=== PATIENT | female | born 2000 | race Caucasian/White ===

== ENCOUNTER 2024-08-11 18:58 | Emergency (ER) | payer BC, SELFPAY ==
[2024-08-11 19:07] VITALS: BP 135/82; PULSE 76; RESP 20; TEMP 36.4; O2SAT 99
[2024-08-11 19:20] LABS: Bilirubin Negative (Negative); Blood Moderate (Negative); Clarity Sl Cloudy (Clear); Glucose Negative (Negative); Ketones Negative (Negative); Leukocyte Esterase Negative (Negative); Nitrite Positive (Negative); Specific Gravity >= 1.030 (1.005-1.025); Urobilinogen 0.2 mg/dL (Up to 0.2); pH 5.5 (5-8)
--- NOTE | 2024-08-11 19:23 | ED.GENADUL_ITS ---
Discharge Plan Disposition Patient Disposition: Home Condition: Stable Discharge Details Clinical Impression: Vaginal bleeding, Flank pain Primary Care Provider: Unknown,Unknown ED Provider: Jeannette Rodriguez Home Meds and New Rx's Prescriptions: New ibuprofen 800 mg tablet 800 mg PO TID PRNQty: 15 0RF cephalexin 500 mg capsule 500 mg PO BID Qty: 10 0RF No Action cyclobenzaprine 10 mg tablet 10 mg PO TID Rx Instructions: for 5 days naproxen 500 mg tablet 500 mg PO BID Rx Instructions: for 10 days Discharge Instructions Instructions: Heavy Periods ED, Flank Pain ED Additional Instructions: Please follow-up with your primary care provider. In the meantime if you do get worse or develop any new or concerning symptoms please return to the emergency department. HPI General Date/Time Provider Initiated Documentation: 08/11/24 19:01 . HPI Narrative: The patient is a 23-year-old female without any significant past medical history who comes the emergency department for heavy vaginal bleeding, right-sided flank pain. The patient reports that she normally would have a period that lasted only 3 days but since last week she has been bleeding and it has not stopped. She reports that she was expecting her period to stop by Monday but it did not. Reports that she did miss her Depo shot this Monday. Reports that she has also noticed pain along the right flank. Patient is unsure if it is related. Denies any nausea or vomiting with this otherwise. Denies fevers or chills. Denies any trauma or injury to the region. Denies concern. Denies lightheadedness or dizziness. Reports in a day she goes through may be 5-7 pads. Related Data Home Medications ?Medication ?Instructions ?Recorded ?Confirmed cephalexin 500 mg capsule 500 mg PO BID #10 caps 08/11/24 cyclobenzaprine 10 mg tablet 10 mg PO TID 08/11/24 08/11/24 ibuprofen 800 mg tablet 800 mg PO TID PRN #15 tabs 08/11/24 naproxen 500 mg tablet 500 mg PO BID 08/11/24 08/11/24 Previous Rx's ?Medication ?Instructions ?Recorded cephalexin 500 mg capsule 500 mg PO BID #10 caps 08/11/24 ibuprofen 800 mg tablet 800 mg PO TID PRN #15 tabs 08/11/24 Allergies Allergy/AdvReac Type Severity Reaction Status Date / Time No Known Allergies Allergy Unverified 08/11/24 19:03 General Stated Complaint: [employer]: 3 Review of Systems Narrative: Review of systems are negative except as mentioned. Exam Narrative Exam Narrative: General appearance: The patient is alert, has no immediate need for airway protection and no signs of toxicity. Respiratory: There are no retractions, lung are clear to auscultation bilaterally. Cardiovascular: Regular in rate and rhythm. Radial pulses are intact and equal. Gastrointestinal: Abdomen is soft and non-tender to palpation throughout with normal bowel sounds. Neurologic: The patient is alert, awake and oriented to time, person and place. Skin: Warm and dry. Back: The patient has right-sided CVA tenderness to palpation. No midline lumbar or thoracic spine tenderness is noted on exam. Course Vital Signs Vital signs: Vital Signs Temperature 36.4 C L 08/11/24 19:07 Pulse 76 08/11/24 19:07 Respiratory Rate 20 08/11/24 19:07 Blood Pressure 135/82 08/11/24 19:07 Pulse Oximetry 99 08/11/24 19:07 Temperature 36.4 C L 08/11/24 19:07 Temperature Source Oral 08/11/24 19:07 Pulse 76 08/11/24 19:07 Respiratory Rate 20 08/11/24 19:07 Blood Pressure 135/82 08/11/24 19:07 Blood Pressure Position Sitting 08/11/24 19:07 Pulse Oximetry 99 08/11/24 19:07 Pain Level 7 08/11/24 19:18 Lab/Test Results Lab/Test Results: Laboratory Tests Range/Units 08/11/24 18:59 Urine Color (Yellow) Yellow Urine Clarity (Clear) Sl Cloudy Urine pH (5-8) 5.5 Ur Specific [place] (1.005-1.025) >= 1.030 H Urine Protein (Neg-Trace) mg/dL 30 H Urine Ketones (Negative) mg/dL Negative Urine Blood (Negative) Moderate H Urine Nitrite (Negative) Positive H Urine Bilirubin (Negative) Negative Urine Urobilinogen (Up to 0.2) mg/dL 0.2 Ur Leukocyte Esterase (Negative) Negative Urine Glucose (Negative) mg/dL Negative POC- Test(urine) Negative Medical Decision Making The patient arrives hemodynamically stable. I told her it is entirely possible that her normal period did not stop because she missed her Depo shot. Patient reports that she is thinking of switching to a different control regimen. Patient was able to provide a urine specimen. This is sent to the lab. I have ordered ibuprofen in the meantime. The patient's test was negative. Her urine did have bacteria and nitrites. I spoke with the patient regarding workup result thus far. I told her I could potentially start her on antibiotics but I also spoke with her about getting blood work and even CAT scan to assess the flank pain looking for kidney stone and at this point the patient declined. Patient will therefore be discharged. I told her it would not be unreasonable to start her on antibiotics so I sent a prescription to her preferred pharmacy. In regards to the heavy bleed I asked her to take ibuprofen and to follow-up with her primary care doctor. I told her in the meantime if she does get worse or develop any new or concerning symptoms return to the emergency department otherwise follow-up with an outpatient basis. Quality:SDOH Health Related Social Needs: No Data to Display PFSH All Active Problems (Updated 08/11/24 @ 19:40 by Jeannette Rodriguez DO) Flank pain (Acute) Vaginal bleeding (Acute) Social History Smoking/Tobacco Use Status: Never Smoking risk assessment performed?: Yes Alcohol Intake: never Drug use: Daily Substance use type: marijuana Housing: house Do you feel safe at home: Yes Do you feel safe in your relationship?: Yes
[2024-08-11] MEDS: Ibuprofen 800 MG TAB PO (19:25)
[2024-08-11 19:29] LABS: Epithelial Cells Moderate HPF (Negative); RBC >50 HPF (0-2); WBC Negative HPF (0-5)
[2024-08-11 19:30] LABS: Bacteria Many HPF (Negative); C & S Indicated? No; Crystals Negative HPF (Negative); Mucus Trace (Negative)
== END 2024-08-11 19:49 | disposition home or self-care (01) ==
LOC: ER 20:15
PROVIDERS: Emergency Provider Emergency Medicine
DX: N92.0 Excessive and frequent menstruation with regular cycle (principal); R10.9 Unspecified abdominal pain
CPT/HCPCS: 99283 ×2; 81025; 81003; 81015

== ENCOUNTER 2024-08-21 09:47 | Outpatient (CLI) | payer BC, SELFPAY ==
[2024-08-21 10:17] LABS: Abs Immature Grans 0.02 10^3/uL (0.0-0.06); Absolute Basophil Count 0.02 10^3/uL (0.0-0.2); Absolute Eosinophil Count 0.01 10^3/uL (0.0-0.7); Absolute Lymphocyte Count 1.44 10^3/uL (1.2-3.4); Absolute Neutrophil Count 2.64 10^3/uL (1.2-6.7); Basophils % 0.4 %; Eosinophils % 0.2 %; HCT 41.7 % (36.0-46.0); HGB 13.7 g/dL (11.2-15.7); Immature Grans % 0.4 %; Lymphocytes % 31.8 %; MCH 26.2 pg (27.0-33.0); MCHC 32.9 % (32.0-36.0); MCV 80 fL (80-95); MPV 9.1 fL (8.0-11.0); Monocytes % 8.8 %; Neutrophils % 58.4 %; Platelet Count 227 10^3/uL (130-400); RBC 5.22 10^6/uL (3.93-5.22); RDW 12.9 % (11.7-14.6); RDW-SD 36.5 fL; WBC 4.53 10^3/uL (4.4-10.8)
[2024-08-21 10:55] LABS: Calculated LDL 57 mg/dL (<100); Cholesterol 116 mg/dL (<200); Glucose 91 mg/dL (74-106); HDL Cholesterol 51 mg/dL (>or=50); TSH (W/Ref FT4) 0.67 uIU/mL (0.36-3.74); Triglyceride 42 mg/dL (<150)
[2024-08-21 18:03] LABS: Prolactin 6.7 ng/mL (See Note)
[2024-08-25 16:56] LABS: Testosterone, Total 18 ng/dL (8-60)
[2024-08-27 01:33] LABS: 17-Hydroxyprogesterone <40 ng/dL
== END 2024-08-21 09:48 | disposition home or self-care (01) ==
LOC: LBO 09:47
PROVIDERS: Family Medicine; Visit Provider Family Medicine
DX: N92.1 Excessive and frequent menstruation with irregular cycle (principal); E28.2 Polycystic ovarian syndrome; Z00.00 Encounter for general adult medical examination without abnormal findings
CPT/HCPCS: 36415; 80061; 82947; 83498; 84403; 84146; 84443; 85025